=== PATIENT | female | born 1975 | race Two or more races ===

== ENCOUNTER 2024-08-06 21:29 | Emergency (ER) | payer SELFPAY ==
[2024-08-06 21:31] VITALS: BP 114/80; PULSE 84; RESP 16; O2SAT 100
--- NOTE | 2024-08-06 21:32 | PC.NURSE ---
Dr. Louis seeing patient in old triage room
--- NOTE | 2024-08-06 21:39 | PD.EDALCOH ---
ED Alcohol RME/HPI General Chief Complaint: Alcohol Stated Complaint: possible etoh, family found pt unresponsive Arrival date/time: 08/06/24 21:29 Limitations: no limitations RME / HPI RME / HPI narrative: DR. CURRIE MAIN ED EVALUATION: 48 year old female presents to the Emergency Department brought in by the son with complaint of alcohol intoxication. The patient has an alcohol problem and drank today, so she was unresponsive and her son brought her for evaluation because he was drunk. Otherwise no other concerns or symptoms reported at this time. Related Data Home Medications ?Medication ?Instructions ?Recorded ?Confirmed escitalopram oxalate 20 mg tablet 20 mg PO QDAY 11/26/19 04/14/22 (Lexapro) alprazolam 2 mg tablet See Rx Instructions .Route .COMPLEX 04/14/22 04/14/22 buspirone 7.5 mg tablet 1 tab PO BID PRN Anxiety 04/14/22 04/14/22 potassium chloride 20 mEq 1 tab PO QDAY 04/14/22 04/14/22 tablet,extended release tramadol 50 mg tablet 1 tab PO TID PRN Pain 04/14/22 04/14/22 Previous Rx's ?Medication ?Instructions ?Recorded hydrocodone 7.5 mg-acetaminophen 1 tab PO Q6H PRN pain #14 tabs 04/14/22 325 mg tablet baclofen 5 mg tablet 5 mg PO TID PRN muscle spasm #30 03/26/23 tabs hydrocodone 5 mg-acetaminophen 325 1 tab PO BID PRN pain #14 tabs 03/26/23 mg tablet Allergies Allergy/AdvReac Type Severity Reaction Status Date / Time aspirin Allergy Severe Hives Verified 08/06/24 21:31 Penicillins Allergy Severe Hives Verified 03/26/23 16:38 Review of Systems Review of Systems Systems Reviewed: All systems reviewed, normal except as documented Past Medical History Past Medical History CARDIAC: Positive Hypertension RESPIRATORY: Negative Chronic Obstructive Pulmonary Disease (COPD) GENITOURINARY: Negative Renal Disease ENDOCRINE: Positive Hyperthyroidism; Negative Diabetes Mellitus Type 1 or Diabetes Mellitus Type 2 PSYCHO/SOCIAL: Positive Depression Social History SMOKING STATUS: Never smoker ED Exam General Limitations: Present no limitations General appearance: Present alert, in no apparent distress and other (Patient has mild slurred speech, she is drunk otherwise talking and movement all extremities.) Head Head exam: Present atraumatic, normocephalic and normal inspection Eye Eye exam: Present normal appearance, PERRL and EOMI ENT ENT exam: Present normal exam, normal oropharynx and mucous membranes moist Neck Neck exam: Present normal inspection, full ROM and trachea midline Chest Chest inspection: Present normal inspection and symmetric chest wall rise Respiratory Respiratory exam: Present normal lung sounds bilaterally Cardiovascular Cardiovascular exam: Present regular rate, normal rhythm and normal heart sounds Abdominal Exam Abdominal exam: Present soft and normal bowel sounds Extremities Exam Extremities exam: Present normal inspection and full ROM Back Exam Back exam: Present normal inspection and full ROM Neurological Exam Neurological exam: Present alert, oriented X3 and CN II-XII intact Psychiatric Psychiatric exam: Present normal affect and normal mood Skin Skin exam: Present warm, dry, intact and normal color Course Quality Measures none Vital Signs Vital signs: Vital Signs Pulse Rate 84 08/06/24 21:31 Respiratory Rate 16 08/06/24 21:31 Blood Pressure 114/80 08/06/24 21:31 Pulse Oximetry (%) 100 08/06/24 21:31 Oxygen Delivery Method Room Air 08/06/24 21:31 Discharge Plan Plan Patient Disposition: Elopement Patient condition on transfer: Stable Prescriptions/Referrals Prescriptions/Med Rec: No Action escitalopram oxalate [Lexapro] 20 mg Tablet 20 mg PO QDAY tramadol 50 mg tablet 1 tab PO TID PRN (Reason: Pain) Patient Comments: TAKE 1 TABLET BY MOUTH 3 TIMES A DAY NEEDED FOR PAIN alprazolam 2 mg tablet See Rx Instructions .ROUTE .COMPLEX Patient Comments: TAKE 1/2 TO 1 TABLET BY MOUTH TWICE A DAY NEEDED FOR 30 DAYS Rx Instructions: 1/2 - 1 TABELTS BID NEEDED potassium chloride 20 mEq tablet extended release 1 tab PO QDAY Patient Comments: TAKE 1 TABLET BY MOUTH EVERY DAY WITH FOOD FOR 30 DAYS buspirone 7.5 mg tablet 1 tab PO BID PRN (Reason: Anxiety) Patient Comments: TAKE 1 TABLET BY MOUTH TWICE A DAY FOR ANXIETY hydrocodone-acetaminophen 7.5-325 mg tablet 1 tab PO Q6H MDD 4 PRN (Reason: pain) Qty: 14 0RF hydrocodone-acetaminophen 5-325 mg tablet 1 tab PO BID MDD 2 PRN (Reason: pain) Qty: 14 0RF baclofen 5 mg tablet 5 mg PO TID PRN (Reason: muscle spasm) Qty: 30 0RF Problem List Clinical Impression: History of alcohol abuse Patient/Caregiver Discharge Instructions Print Language: Beninese Alcohol MDM Narrative MDM Narrative: I, Lupe Street, am scribing for and in the presence of Dr. Currie. Patient data External records reviewed:: [facility] previous records (Reviewed last ED visit dated 03/26/23, discharged with the following: Chronic back pain.) Clinical information provided by:: patient and family (son) Social determinants that could affect healthcare access:: alcohol use Patient has the following chronic illnesses:: depression, chronic pain syndrome, depression, anxiety, alcoholism How is presenting disease/condition affected by chronic disease/condition?: exacerbated by Evaluation data The following diagnostics were reviewed and interpreted by me:: other (specify) (none) Lab and/or radiology exams considered but not ordered:: none Interpretation Summary: none, patient eloped Medications / Prescriptions Medications or Prescriptions considered but not ordered:: none Medication administrations:: see above if any Consultations Consultation(s) initiated? (list below): No Diagnosis Differential diagnosis alcohol: alcohol intoxication, alcohol ketoacidosis and alcohol withdrawal syndrome Most likely diagnosis given after review of the tests above:: Alcohol intoxication Admission Indicated Admission indicated?: not indicated Explain why admission is indicated or not indicated:: Patient eloped Admission Request Was there a request for admission?: No Disposition Plan Disposition Plan: other (specify) (patient eloped)
== END 2024-08-06 21:59 | disposition left against medical advice (07) ==
LOC: SERX 22:07
PROVIDERS: Emergency Provider Emergency Medicine
DX: F10.129 Alcohol abuse with intoxication, unspecified (principal)
CPT/HCPCS: 99281